=== PATIENT | female | born 1975 | race Caucasian/White ===

== ENCOUNTER 2018-01-23 02:26 | Emergency (ER) | payer BC ==
[2018-01-23] MEDS ORDERED: SODIUM CHLORIDE 0.9% 1,000 ML IV STA (02:31)
[2018-01-23 02:41] VITALS: BP 171/95; PULSE 120; RESP 20; TEMP 97.5
--- NOTE | 2018-01-23 03:07 | ED ---
General Adult HPI - General Stated complaint: FALL Time Seen by Provider: 01/23/18 02:31 Source: patient Mode of arrival: EMS Limitations: altered mental status - History of Present Illness Initial comments: Cris is a 42-year-old female who presents the ED via EMS for evaluation of alcohol intoxication and fall. Per EMS patient's family members heard a thump and went upstairs, she was face down, she was shaking, they called 911. EMS arrived on scene the patient was awake and alert but somewhat confused. In route The hospital she became more awake alert and oriented. She was noted to have a laceration to her lip and swelling of her lower lip. She denied any pain or injury. Upon my initial evaluation the patient's awake, alert, oriented. She states that she been drinking this evening and that she fell. She reports that she tripped and fell forward. In that she has a fat lip. She reports that she doesn't want any evaluation. She denies any pain or injury. She admits to drinking alcohol this evening. She states that her a month and a half ago and she has been drinking slightly more than usual. - Related Data Allergies Allergy/AdvReac Type Severity Reaction Status Date / Time No Known Allergies Allergy Verified 01/23/18 02:41 Review of Systems ROS Statement: Those systems with pertinent positive or pertinent negative responses have been documented in the HPI. ROS Other: All systems not noted in ROS Statement are negative. Past Medical History Past Medical History: No Reported History History of Any Multi-Drug Resistant Organisms: None Reported Past Surgical History: No Surgical Hx Reported Past Psychological History: No Psychological Hx Reported Smoking Status: Current every day smoker Past Alcohol Use History: Heavy, Occasional Past Drug Use History: Marijuana General Exam - General Exam Comments Initial Comments: GENERAL: Unkempt appearance HENT: Normocephalic, swelling to lower lip with a laceration to the lower lip TMs normal bilaterally, No hemotympanum, no epistaxis, no jalloh signs No midline cervical spine tenderness EYES: The sclera were anicteric and conjunctiva were pink and moist. Extraocular movements were intact and pupils were equal round and reactive to light. Eyelids were unremarkable. PULMONARY: Unlabored respirations. Good breath sounds bilaterally. No audible rales rhonchi or wheezing was noted. CARDIOVASCULAR: Tachycardic, regular ABDOMEN: Soft and nontender with normal bowel sounds. SKIN: Laceration to lower lip NEUROLOGIC: Patient is alert and oriented x3. Cranial nerves II through XII are grossly intact. Motor and sensory are also intact. Normal speech, volume and content. MUSCULOSKELETAL: Normal extremities with adequate strength and full range of motion. No lower extremity swelling or edema. No calf tenderness. LYMPHATICS: No significant lymphadenopathy is noted PSYCHIATRIC: Normal psychiatric evaluation. Limitations: no limitations Limitations: altered mental status Course Vital Signs 01/23/18 02:34 Temperature 97.5 F L Pulse Rate 120 H Respiratory 20 Rate Blood Pressure 171/95 O2 Sat by Pulse 95 Oximetry Medical Decision Making - Medical Decision Making History was obtained from EMS, a trauma workup as well as new seizure workup was ordered Patient was evaluated, patient is awake, alert, oriented to person, place, events leading up to hospitalization. Patient is declining any further workup. I discussed with the patient the risks and benefits of workup. Advised the patient that considering that she is been drinking alcohol and had a fall she is high risk for injury including intracranial bleeding. Advised the patient that without a computed tomography scan we cannot rule out any brain injury. I also advised the patient that leaving without a full workup could result in . She was able to express understanding of this information and was able to teach this back to me and the nurse at bedside. Despite being under the influence of alcohol the patient is awake, alert, oriented, able to understand and make medical decisions. I offered the patient a limited workup just a head CT ordered however she declined. I offered to suture the laceration on the lower lip, patient declined. I advised the patient that even if she chooses to leave AGAINST MEDICAL ADVICE she is welcome to return any time for reevaluation. Patient expressed understanding of this. The patient has decided to leave against medical advice because she would like to go home to sleep, she has follow-up appointments with physicians later in the day The patient has adequate capacity to make medical decisions. The patient refuses hospital admission and wants to be discharged. The risks have been explained to the patient, including failure of wound healing of her lip laceration, scarring, infection of this laceration, possible recurrent seizure, worsening illness, chronic pain, permanent disability and . The benefits of workup/admission have also been explained, including the availability and proximity of nurses, physicians, monitoring, diagnostic testing , treatment. The patient was able to understand and state the risks and benefits of hospital admission. This was witnessed by nurse and me. The patient the opportunity to ask questions about their medical condition. The patient was treated to the extent that they would allow and knows that they may return for care at any time. Patient was able to ambulate independently to the waiting room where she plan to call for a taxi. Disposition Clinical Impression: Fall at home, Lip laceration Disposition: Left Against Medical Advice Is patient prescribed a controlled substance at d/c from ED?: No Referrals: Sriram Christianson DO [Primary Care Provider] - 1-2 days
== END 2018-01-23 03:00 | disposition left against medical advice (07) ==
LOC: EC 02:26
DX: S01.511A Laceration without foreign body of lip, initial encounter (principal); F17.200 Nicotine dependence, unspecified, uncomplicated; W06.XXXA Fall from bed, initial encounter
CPT/HCPCS: 93005; 99283

== ENCOUNTER 2019-10-13 00:57 | Emergency (ER) | payer BC ==
[2019-10-13 01:08] VITALS: TEMP 97.6
--- NOTE | 2019-10-13 01:25 | ED ---
Psych HPI - General Source: patient, RN notes reviewed, old records reviewed Mode of arrival: ambulatory - History of Present Illness MD Complaint: suicidal ideation, feels depressed -: unknown Associated Psychiatric Symptoms: depression, suicidal ideation History of same: Yes Quality: constant Improves With: none Worsens With: none Context: recent alcohol abuse Associated Symptoms: denies other symptoms Treatments Prior to Arrival: placed on mental health hold If Self Harm: admits thoughts of self harm <Paul Bauman - Last Filed: 10/13/19 06:40> <Neil Franco - Last Filed: 10/13/19 12:38> - General Chief Complaint: Psychiatric Symptoms Stated Complaint: Mental Health Time Seen by Provider: 10/13/19 01:15 - History of Present Illness Initial Comments: This is a 44-year-old female who is presented ER patient is a poor strain sec ondary to alcohol intoxication which is very angry to be in the hospital angry and argumentative. Patient not providing history secondary to metabolic (Paul Bauman) - Related Data Allergies Allergy/AdvReac Type Severity Reaction Status Date / Time No Known Allergies Allergy Verified 10/13/19 10:38 Review of Systems ROS Other: All systems not noted in ROS Statement are negative. <Paul Bauman - Last Filed: 10/13/19 06:40> ROS Other: All systems not noted in ROS Statement are negative. <Neil Franco - Last Filed: 10/13/19 12:38> ROS Statement: Those systems with pertinent positive or pertinent negative responses have been documented in the HPI. Past Medical History Past Medical History: No Reported History History of Any Multi-Drug Resistant Organisms: None Reported Past Surgical History: No Surgical Hx Reported, Section Past Psychological History: No Psychological Hx Reported, Anxiety, Depression Smoking Status: Current every day smoker Past Alcohol Use History: Heavy, Occasional Past Drug Use History: Marijuana <Paul Bauman - Last Filed: 10/13/19 06:40> General Exam Limitations: no limitations General appearance: alert, in no apparent distress, appears intoxicated Head exam: Present: atraumatic, normocephalic, normal inspection Eye exam: Present: normal appearance, PERRL, EOMI. Absent: scleral icterus, conjunctival injection, periorbital swelling ENT exam: Present: normal exam, mucous membranes moist Neck exam: Present: normal inspection. Absent: tenderness, meningismus, lymphadenopathy Respiratory exam: Present: normal lung sounds bilaterally. Absent: respiratory distress, wheezes, rales, rhonchi, stridor Cardiovascular Exam: Present: regular rate, normal rhythm, normal heart sounds. Absent: systolic murmur, diastolic murmur, rubs, gallop, clicks GI/Abdominal exam: Present: soft, normal bowel sounds. Absent: distended, tenderness, guarding, rebound, rigid Extremities exam: Present: normal inspection, full ROM, normal capillary refill. Absent: tenderness, pedal edema, joint swelling, calf tenderness Back exam: Present: normal inspection Neurological exam: Present: alert, oriented X3, CN II-XII intact Psychiatric exam: Present: normal affect, normal mood Skin exam: Present: warm, dry, intact, normal color. Absent: rash <Paul Bauman - Last Filed: 10/13/19 06:40> Course <Paul Bauman - Last Filed: 10/13/19 06:40> Vital Signs 10/13/19 01:02 Temperature 97.6 F Pulse Rate 119 H Respiratory 18 Rate Blood Pressure 120/84 O2 Sat by Pulse 100 Oximetry - Reevaluation(s) Reevaluation #1: 10/13/19 06:41 Medical record is reviewed (Paul Bauman) Reevaluation #2: 10/13/19 06:41 patient is medically clear (Paul Bauman) Medical Decision Making <Neil Franco - Last Filed: 10/13/19 12:38> - Medical Decision Making Patient ended up in my care. She is pending EPS evaluation. EPS evaluated patient and will discharge patient with outpatient substance abuse resources. (Neil Franco) - Lab Data Lab Results 10/13/19 10/13/19 Range/Units 02:03 02:03 Urine HCG, Qual Not Detected (Not Detectd) Urine Opiates Screen Not Detected (NotDetected) Ur Oxycodone Screen Not Detected (NotDetected) Urine Methadone Screen Not Detected (NotDetected) Ur Propoxyphene Screen Not Detected (NotDetected) Ur Barbiturates Screen Not Detected (NotDetected) U Tricyclic Antidepress Not Detected (NotDetected) Ur Phencyclidine Scrn Not Detected (NotDetected) Ur Amphetamines Screen Not Detected (NotDetected) U Methamphetamines Scrn Not Detected (NotDetected) U Benzodiazepines Scrn Not Detected (NotDetected) Urine Cocaine Screen Not Detected (NotDetected) U Marijuana (THC) Screen Not Detected (NotDetected) Disposition <Paul Bauman B - Last Filed: 10/13/19 06:40> Is patient prescribed a controlled substance at d/c from ED?: No Time of Disposition: 12:38 <Neil Franco - Last Filed: 10/13/19 12:38> Clinical Impression: Alcohol abuse Disposition: HOME SELF-CARE Condition: Fair Instructions (If sedation given, give patient instructions): Alcohol Intoxication (ED), Abuse of Alcohol (ED) Referrals: Sriram Christianson DO [Primary Care Provider] - 1-2 days
[2019-10-13 03:01] LABS: Amphetamine Screen,Urine Not Detected (NotDetected); Barbiturate Screen,Urine Not Detected (NotDetected); Benzodiazepines Screen,Urine Not Detected (NotDetected); Cocaine Screen,Urine Not Detected (NotDetected); Methadone Screen, Urine Not Detected (NotDetected); Opiate Screen,Urine Not Detected (NotDetected); Oxycodone Screen, Urine Not Detected (NotDetected); Phencyclidine Screen,Urine Not Detected (NotDetected); Tricyclic Antidepressant,Urine Not Detected (NotDetected); Urn Cannabinoid Scrn Not Detected (NotDetected)
[2019-10-13 13:48] VITALS: BP 149/96; PULSE 110; RESP 20
== END 2019-10-13 13:07 | disposition home or self-care (01) ==
LOC: EC 00:57
DX: F10.129 Alcohol abuse with intoxication, unspecified (principal); F17.200 Nicotine dependence, unspecified, uncomplicated; Y90.9 Presence of alcohol in blood, level not specified
CPT/HCPCS: 80306; 81025; 82075; 99285